=== PATIENT | female | born 1970 | race Caucasian/White ===

== ENCOUNTER 2018-11-24 18:18 | Emergency (ER) | payer MEDICAID ==
[2018-11-24] MEDS ORDERED: MORPHINE SULFATE 10MG/1ML **1ML VIAL IVP ONE (18:24)
[2018-11-24] MEDS ORDERED: ONDANSETRON HCL IV 4 MG/2 ML VIAL IVP ONE (18:24)
--- NOTE | 2018-11-24 18:29 | Emergency Department Record ---
History of Present Illness - General Chief Complaint: Abdominal Pain Stated Complaint: ABD PAIN Time Seen by Provider: 11/24/18 18:23 Source: Patient Mode of Arrival: Ambulatory Limitations: No limitations - History of Present Illness Initial Comments: 48 yo female presents to ED for evaluation of LLQ pain symptoms that began 2-3 days ago, worsened today. Patient denies fevers, chills, or recent illness, but reports nausea and constipation symptoms today. Patient reports previous appendectomy and "cyst removed from the ovary", denies history of di verticulitis. Patient reports history of CAD and DM. Patient denies urinary symptoms. Patient rates her pain at 6/10. MD Complaint: Abdominal pain Onset/Timin -: Days(s) Location: LLQ Radiation: RLQ Severity: Moderate Quality: Aching Consistency: Constant Improves With: Nothing Worsens With: Nothing Associated Symptoms: Nausea - Related Data Patient : No Allergies Allergy/AdvReac Type Severity Reaction Status Date / Time No Known Drug Allergies Allergy Verified 11/24/18 18:28 Review of Systems Constitutional: Denies: Chills, Fever, Malaise, Night sweats Eyes: Denies: Eye discharge, Eye pain ENT: Denies: Congestion, Ear pain, Epistaxis Respiratory: Denies: Cough, Dyspnea Cardiovascular: Denies: Chest pain, Dyspnea on exertion Endocrine: Denies: Fatigue, Heat or cold intolerance Gastrointestinal: Reports: Abdominal pain, Constipation, Nausea. Denies: Vomiting Genitourinary: Denies: Incontinence, Retention Musculoskeletal: Denies: Arthralgia, Back pain Skin: Denies: Bruising, Change in color Neurological: Denies: Abnormal gait, Confusion, Headache, Tingling, Tremors Psychiatric: Denies: Anxiety Hematological/Lymphatic: Denies: Anemia, Blood Clots Past Medical History - SOCIAL HISTORY Smoking Status: Current every day smoker - RESPIRATORY Hx Respiratory Disorders: No - CARDIOVASCULAR Hx Cardio Disorders: Yes Hx Heart Attack: Yes (x2) - NEURO Hx Neuro Disorders: Yes Hx Neuropathy: Yes (lower extremities) - GI Hx GI Disorders: No - Hx Genitourinary Disorders: Yes Hx Kidney Stones: Yes - ENDOCRINE Hx Endocrine Disorders: Yes Hx Diabetes: Yes Hx Thyroid Disease: Yes (low) - MUSCULOSKELETAL Hx Musculoskeletal Disorders: No - PSYCH Hx Psych Problems: Yes Hx Anxiety: Yes Hx Depression: Yes - HEMATOLOGY/ONCOLOGY Hx Hematology/Oncology Disorders: No Family Medical History Family Hx Comment (NOT TO BE USED IN PLACE OF ITEMS BELOW): unknown-adopted. Physical Exam - General General Appearance: Alert, Oriented x3, Cooperative, Moderate distress Limitations: No limitations - Head Head exam: Atraumatic, Normocephalic, Normal inspection Head exam detail: negative: Abrasion, Contusion, Roger's sign, General tenderness, Hematoma, Laceration - Eye Eye exam: Normal appearance. negative: Conjunctival injection, Periorbital swelling, Periorbital tenderness, Scleral icterus - ENT Ear exam: negative: Auricular hematoma, Auricular trauma Nasal Exam: negative: Active bleeding, Discharge, Dried blood, Foreign body Mouth exam: negative: Drooling, Laceration, Muffled voice, Tongue elevation - Neck Neck exam: Normal inspection. negative: Meningismus, Tenderness - Respiratory Respiratory exam: Normal lung sounds bilaterally. negative: Respiratory distress, Rhonchi, Stridor, Wheezes - Cardiovascular Cardiovascular Exam: Regular rate, Normal rhythm, Normal heart sounds - GI/Abdominal GI/Abdominal exam: Soft, Tenderness (TTP LLQ on exmaination, rebound is present, no peritoneal signs on examination). negative: Rebound, Rigid - Rectal Rectal exam: Deferred - exam: Deferred - Extremities Extremities exam: Normal inspection. negative: Pedal edema, Tenderness - Back Back exam: Denies: CVA tenderness (R), CVA tenderness (L) - Neurological Neurological exam: Alert, Normal gait, Oriented X3 - Psychiatric Psychiatric exam: Normal affect, Normal mood - Skin Skin exam: Normal color. negative: Abrasion Type of lesion: negative: abrasion Course - Reevaluation(s) Reevaluation #1: 11/24/18 19:20 Laboratory studies were reviewed and are grossly unremarkable for an acute process except for Hgb 9.8. Previous Hgb level 10.7 04/25. Patient was updated on all results thus far, reports mild improvement following morphine administration. Patient is going for CT imaging at this time. Reevaluation #2: 11/24/18 20:16 CT Abdomen and Pelvis: No acute abnormality Prominence of the tail of pancreas, recommend dedicated CT of the pancreas for further evaluation. Patient was updated on all results, reports that her symptoms are improved, resting comfortably on re-examination. Patient reports that she does have Levsin at home, recommended taking it as needed for her symptoms. Discussed dedicated pancreas CT imaging as an outpatient as well. All questions were answered, and the patient appears stable for discharge at this time. Medical Decision Making - Lab Data Result diagrams: 11/24/18 18:42 11/24/18 18:42 Disposition Disposition: Discharge Clinical Impression: Abdominal pain Qualifiers: Abdominal location: left lower quadrant Qualified Code(s): R10.32 - Left lower quadrant pain Disposition: Home, Self-Care Condition: (2) Stable Instructions: Abdominal Pain (ED) Additional Instructions: Return to ED if your symptoms worsen or if you have any concerns. Hyocosamine as directed. Follow-up with your family doctor in 3-5 days as directed. Recommend dedicated CT imaging of the pancreas for further evaluation of the tail in 2-4 weeks as directed. Forms: Patient Portal Access Time of Disposition: 20:22 Quality - Quality Measures Quality Measures: N/A - Blood Pressure Screening Does Patient Have Any of the Following: No Blood Pressure Classification: Hypertensive Reading Systolic Measurement: 144 Diastolic Measurement: 77 Screening for High Blood Pressure: < First Hypertensive BP, F/U Documented > [G8950] First Hypertensive Follow-up Interventions: Referral to alternative/primary care provider.
[2018-11-24] MEDS ORDERED: 0.9 % SODIUM CHLORIDE 1000ML 1,000 ML IV SCH (18:30)
[2018-11-24 18:47] LABS: URINE APPEARANCE CLEAR; URINE BILIRUBIN NEGATIVE (NEGATIVE); URINE BLOOD NEGATIVE (NEGATIVE); URINE COLOR YELLOW; URINE KETONE NEGATIVE (NEGATIVE); URINE LEUKOCYTE ESTERASE SMALL (NEGATIVE); URINE NITRITE NEGATIVE (NEGATIVE); URINE PROTEIN NEGATIVE (NEGATIVE)
[2018-11-24 18:49] LABS: ABSOLUTE NEUTROPHIL COUNT 5.04; BASO % 0.7 % (0-6); EOS % 2.9 % (0-6); GRAN % 67.1 % (47-80); HEMATOCRIT 33.1 % (35.0-47.0); HEMOGLOBIN 9.8 gm/dl (11.6-16.0); LYMPH % 21.4 % (16-45); MEAN CELL VOLUME 71.5 fl (81-97); MEAN CORPUSCULAR HEMOGLOBIN 21.1 pg (27-33); MEAN CORPUSCULAR HGB CONC 29.6 g/dl (32-36); MONO % 7.9 % (0-9); PLATELET COUNT 355 K/uL (130-400); RED BLOOD COUNT 4.63 M/uL (3.80-5.40); RED CELL DISTRIBUTION WIDTH 18.1 % (11.5-14.5); WHITE BLOOD COUNT W/O DIFF 7.5 K/uL (4.2-12.2)
[2018-11-24 18:58] LABS: URINE BACTERIA FEW; URINE EPITHELIAL CELLS 21 - 35 (FEW); URINE RBC 0 - 2 (NONE SEEN); URINE WBC 0 - 2 (0-2/hpf)
[2018-11-24 19:02] LABS: BLOOD UREA NITROGEN 12 mg/dL (6-20); CREATININE 0.6 mg/dL (0.5-0.9); EST GLOMERULAR FILTRATION RATE > 60 mL/min
[2018-11-24 19:03] LABS: LIPASE 17 U/L (13-60); TOTAL PROTEIN 7.7 g/dL (6.6-8.7)
[2018-11-24 19:05] LABS: GLUCOSE,RANDOM 167 mg/dL (74-109)
[2018-11-24 19:08] LABS: ALB/GLOB RATIO 0.9 (1.1-1.8); ALBUMIN 3.7 g/dL (4.0-5.0); ALKALINE PHOSPHATASE 76 U/L (35-104); ALT/SGPT 7 U/L (<33); AST/SGOT 10 U/L (10.0-35.0)
--- NOTE | 2018-11-26 10:48 | CT SCAN REPORT ---
EXAM: CT OF THE ABDOMEN AND PELVIS WITH CONTRAST HISTORY: LEFT UPPER QUADRANT ABDOMINAL PAIN. TECHNIQUE: Standard CT imaging of the abdomen and pelvis with IV contrast was obtained. Coronal and sagittal reformations are provided. Comparison: None. FINDINGS: Coronary artery calcifications are noted. The lung bases are clear. The liver, gallbladder, and common bile duct are unremarkable. There is ovoid mass like prominence to the pancreatic tail measuring approximately 3.0 cm in length x 1.5 cm in diameter. This is similar in diameter to the remainder of the pancreas though appears more solid than the remainder of the pancreas which demonstrates a more typical feathery appearance. No peripancreatic fat stranding. The spleen is mildly enlarged measuring 14 cm in diameter. the kidneys are unremarkable. The liver is mildly enlarged measuring 19 cm in length. The stomach and small bowel are unremarkable. No bowel dilatation. The bladder is unremarkable. The colon appears normal. The appendix has been resected. Moderate atherosclerotic calcification in the aorta. No aortic aneurysm. No adenopathy in the abdomen or pelvis. No free fluid or free air. No destructive osseous lesion is identified. IMPRESSION: 1. NEGATIVE CT FOR ACUTE ABNORMALITY. 2. MILD SPLENOMEGALY. 3. MASS LIKE PROMINENCE TO THE PANCREATIC TAIL LIKELY NORMAL ANATOMIC VARIATION WITH LESS INTRAPARENCHYMAL FAT, THOUGH A DISTAL MASS IS DIFFICULT TO EXCLUDE. CONSIDER NONEMERGENT PANCREATIC PROTOCOL CT OF THE ABDOMEN FOR FURTHER EVALUATION. JOB NUMBER: [id number] [facility]
== END 2018-11-24 20:36 | disposition home or self-care (01) ==
LOC: ER 18:18
DX: R10.32 Left lower quadrant pain (principal); R11.0 Nausea; I25.10 Atherosclerotic heart disease of native coronary artery without angina pectoris; E11.9 Type 2 diabetes mellitus without complications; Z79.4 Long term (current) use of insulin; I25.2 Old myocardial infarction; F17.210 Nicotine dependence, cigarettes, uncomplicated
CPT/HCPCS: 74177; 80053; 81001; 83690; 85025; 96374; 96375; 99284; J2270; J2405; J7030

== ENCOUNTER 2019-04-13 14:21 | Emergency (ER) | payer MEDICAID ==
--- NOTE | 2019-04-13 14:45 | Emergency Department Record ---
History of Present Illness - General Chief Complaint: Fall Injury Stated Complaint: FALL/LT SHOULDER INJURY Time Seen by Provider: 04/13/19 14:28 Source: Patient, RN notes reviewed Mode of Arrival: Ambulatory - History of Present Illness Initial Comments: fall 2 hours ago and she denies LOC and has neck pain and left shoulder pain and left rib pain and left hip pain and left lower leg pain. Onset/Timin -: Hour(s) Fall From: Standing When Fall Occurred: 1-3 hours [employer] Fall Witnessed: No Place Fall Occurred: Home Loss of Consciousness: None Prolonged Down Time?: No Symptoms Prior to Fall: None Severity: Moderate Severity scale (1-10): 8 Quality: Sharp Context: Tripped/slipped - [place] Coma Scale Eye Response: (4) Open spontaneously Motor Response: (6) Obeys commands Verbal Response: (5) Oriented [place] Total: 15 - Related Data Home Medications Medication Instructions Recorded Confirmed Last Taken Duloxetine HCl [Cymbalta] 20 mg PO DAILY 04/13/19 04/13/19 04/13/19 Allergies Allergy/AdvReac Type Severity Reaction Status Date / Time No Known Drug Allergies Allergy Verified 04/13/19 14:23 Travel Screening - Travel/Exposure Within Last 30 Days Have you traveled within the last 30 days?: No - Travel/Exposure Within Last Year Have you traveled outside the [place] in the last year?: No - Additonal Travel Details Have you been exposed to anyone with a communicable illness?: No - Travel Symptoms Symptom Screening: None Review of Systems Reviewed: No additional complaints except as noted below Constitutional: Reports: As per HPI. Denies: Chills, Fever, Malaise, Night sweats, Weakness, Weight change Eyes: Reports: As per HPI. Denies: Eye discharge, Eye pain, Photophobia, Vision change ENT: Reports: As per HPI. Denies: Congestion, Dental pain, Ear pain, Epistaxis, Hearing loss, Throat pain Respiratory: Reports: As per HPI. Denies: Cough, Dyspnea, Hemoptysis, Stridor, Wheezes Cardiovascular: Reports: As per HPI. Denies: Arrhythmia, Chest pain, Dyspnea on exertion, Edema, Murmurs, Orthopnea, Palpitations, Paroxysmal nocturnal dyspnea, Rheumatic Fever, Syncope Endocrine: Reports: As per HPI. Denies: Fatigue, Heat or cold intolerance, Polydipsia, Polyuria Gastrointestinal: Reports: As per HPI. Denies: Abdominal pain, Constipation, Diarrhea, Hematemesis, Hematochezia, Melena, Nausea, Vomiting Genitourinary: Reports: As per HPI. Denies: Abnormal menses, Discharge, Dyspareunia, Dysuria, Frequency, Hematuria, Incontinence, Retention, Urgency Musculoskeletal: Reports: As per HPI, Arthralgia, Neck pain, Other (left face pain, left rib and left shoulder and left hip and left lower leg pain.). Denies: Back pain, Gout, Joint swelling, Myalgia Skin: Reports: As per HPI. Denies: Bruising, Change in color, Change in hair/nails, Lesions, Pruritus, Rash Neurological: Reports: As per HPI. Denies: Abnormal gait, Confusion, Headache, Numbness, Paresthesias, Seizure, Tingling, Tremors, Vertigo, Weakness Psychiatric: Reports: As per HPI. Denies: Anxiety, Auditory hallucinations, Depression, Homicidal thoughts, Suicidal thoughts, Visual hallucinations Hematological/Lymphatic: Reports: As per HPI. Denies: Anemia, Blood Clots, Easy bleeding, Easy bruising, Swollen glands Past Medical History - SOCIAL HISTORY Smoking Status: Current every day smoker Alcohol Use: None Drug Use: None - RESPIRATORY Hx Respiratory Disorders: No - CARDIOVASCULAR Hx Cardio Disorders: Yes Hx Heart Attack: Yes (x2) - NEURO Hx Neuro Disorders: Yes Hx Neuropathy: Yes (lower extremities) - GI Hx GI Disorders: No - Hx Genitourinary Disorders: Yes Hx Kidney Stones: Yes - ENDOCRINE Hx Endocrine Disorders: Yes Hx Diabetes: Yes Hx Thyroid Disease: Yes (low) - MUSCULOSKELETAL Hx Musculoskeletal Disorders: No - PSYCH Hx Psych Problems: Yes Hx Anxiety: Yes Hx Depression: Yes - HEMATOLOGY/ONCOLOGY Hx Hematology/Oncology Disorders: No Family Medical History Any Significant Family History?: No Family Hx Comment (NOT TO BE USED IN PLACE OF ITEMS BELOW): unknown-adopted. Physical Exam - General General Appearance: Alert, Oriented x3, Cooperative, No acute distress - Head Head exam: Normal inspection - Eye Eye exam: Normal appearance, PERRL Pupils: Normal accommodation - ENT ENT exam: Normal exam, Mucous membranes moist, Normal external ear exam, Normal orophraynx, TM's normal bilaterally Ear exam: Normal external inspection. negative: External canal tenderness Nasal Exam: Normal inspection. negative: Discharge, Sinus tenderness Mouth exam: Normal external inspection, Tongue normal Teeth exam: Normal inspection. negative: Dental caries Throat exam: Normal inspection. negative: Tonsillar erythema, Tonsillar exudate - Neck Neck exam: Normal inspection, Full ROM. negative: Tenderness - Respiratory Respiratory exam: Normal lung sounds bilaterally. negative: Respiratory distress - Cardiovascular Cardiovascular Exam: Regular rate, Normal rhythm, Normal heart sounds - GI/Abdominal GI/Abdominal exam: Soft, Normal bowel sounds. negative: Tenderness - Rectal Rectal exam: Deferred - exam: Deferred - Extremities Extremities exam: Normal inspection, Full ROM, Normal capillary refill. negative: Tenderness - Back Back exam: Reports: Normal inspection, Full ROM. Denies: Muscle spasm, Rash noted, Tenderness - Neurological Neurological exam: Alert, Normal gait, Oriented X3, Reflexes normal - Psychiatric Psychiatric exam: Normal affect, Normal mood - Skin Skin exam: Dry, Intact, Normal color, Warm Course Vital Signs 04/13/19 14:26 Temperature 98.7 F Pulse Rate 78 Respiratory 20 Rate Blood Pressure 127/60 Pulse Ox 98 Medical Decision Making - Data Complexity MDM Data: X-Ray Ordered and/or Reviewed (no fractures seen, CT neck chest negative) - Lab Data Result diagrams: 04/13/19 14:55 04/13/19 14:55 Disposition Clinical Impression: Cervical strain, acute Qualifiers: Encounter type: initial encounter Qualified Code(s): S16.1XXA - Strain of muscle, fascia and tendon at neck level, initial encounter Shoulder contusion Qualifiers: Encounter type: initial encounter Laterality: left Qualified Code(s): S40.012A - Contusion of left shoulder, initial encounter Chest wall contusion Qualifiers: Encounter type: initial encounter Laterality: left Qualified Code(s): S20.212A - Contusion of left front wall of thorax, initial encounter Contusion, lower leg Qualifiers: Encounter type: initial encounter Laterality: left Qualified Code(s): S80.12XA - Contusion of left lower leg, initial encounter Ankle sprain Qualifiers: Encounter type: initial encounter Involved ligament of ankle: anterior talofibular ligament Laterality: left Qualified Code(s): S93.492A - Sprain of other ligament of left ankle, initial encounter Disposition: Home, Self-Care Condition: (1) Good Instructions: Contusion in Adults (ED) Additional Instructions: follow up with family Dr in one week Forms: Patient Portal Access Time of Disposition: 16:29 Quality - Quality Measures Quality Measures: N/A - Blood Pressure Screening Does Patient Have Any of the Following: No Blood Pressure Classification: Pre-Hypertensive BP Reading Systolic Measurement: 127 Diastolic Measurement: 60 Screening for High Blood Pressure: < Pre-Hypertensive BP, F/U Documented > [G8 950] Pre-Hypertensive Follow-up Interventions: Referral to alternative/primary care provider.
[2019-04-13 15:05] LABS: ABSOLUTE NEUTROPHIL COUNT 5.86; BASO % 0.5 % (0-6); EOS % 2.4 % (0-6); HEMATOCRIT 29.3 % (35.0-47.0); HEMOGLOBIN 8.3 gm/dl (11.6-16.0); LYMPH % 13.5 % (16-45); MEAN PLATELET VOLUME 9.6 fl (7.4-10.4); MONO % 6.6 % (0-9); PLATELET COUNT 303 K/uL (130-400); RED BLOOD COUNT 4.35 M/uL (3.80-5.40); WHITE BLOOD COUNT W/O DIFF 7.6 K/uL (4.2-12.2)
[2019-04-13 15:11] LABS: MEAN CELL VOLUME 67.4 fl (81-97)
[2019-04-13 15:12] LABS: MEAN CORPUSCULAR HGB CONC 28.3 g/dl (32-36)
[2019-04-13 15:22] LABS: BLOOD UREA NITROGEN 15 mg/dL (6-20); CREATININE 0.7 mg/dL (0.5-0.9); EST GLOMERULAR FILTRATION RATE > 60 mL/min
[2019-04-13 15:25] LABS: GLUCOSE,RANDOM 278 mg/dL (74-109)
--- NOTE | 2019-04-13 15:49 | CT SCAN REPORT ---
EXAMINATION: MAXILLOFACIAL WO CONTRAST EXAM DATE: 04/13/2019 3:23 PM TECHNIQUE: CT of the maxillofacial bones was obtained without contrast. Multiplanar reconstructions w ere performed INDICATION: fall in shower. ENCOUNTER: Initial COMPARISON: No similar comparison exam FINDINGS: No fracture is identified. No temporal mandibular joint dislocation. Poor dentition is demonstrated with numerous dental caries and absent teeth. The orbits are unremarkable. The paranasal sinuses, mastoid air cells, middle ear cavities are unremarkable. The imaged brain parenchyma is unremarkable. Facial soft tissues are unremarkable. IMPRESSION: 1. No CT evidence of acute traumatic injury. No evidence of fracture. 2. Poor dentition with dental caries and absent teeth. Dictated by: MAGGIE BRIDGES MD on 04/13/2019 3:41 PM. .
--- NOTE | 2019-04-13 15:54 | CT SCAN REPORT ---
EXAMINATION: CT Cervical Spine without IV Contrast EXAM DATE: 04/13/2019 3:11 PM TECHNIQUE: Standard protocol cervical spine CT imaging was performed without intravenous contrast. Co sa[place] and sagittal images were reconstructed. INDICATION: fall in shower COMPARISON: None ENCOUNTER: Not applicable FINDINGS: There is straightening of the normal cervical lordosis. Moderate disc height narrowing sclerosis and spurring are seen at C4-5. Grade 1 posterior spondylolis thesis of C4 over C5 measures 2 mm. Mild endplate degenerative changes are seen at the remaining cervical levels. No evidence of pneumothorax or any focal airspace opacity in the lung apices. No acute fracture line. The prevertebral soft tissues appear normal. Craniocervical junction:Unremarkable. C1-2: Unremarkable. C2-3: Unremarkable. C3-4: Unremarkable. C4-5: Mild bilateral uncovertebral spurring. Mild bilateral bony foraminal stenosis. C5-6: Unremarkable. C6-7: Unremarkable. C7-T1: Unremarkable. IMPRESSION: 1. Straightening of the normal cervical lordosis. 2. No acute cervical spine fracture. Dictated by: Kory Navarrete MD on 04/13/2019 3:46 PM. .
--- NOTE | 2019-04-13 15:56 | CT SCAN REPORT ---
EXAMINATION: CT Chest without IV Contrast EXAM DATE: 04/13/2019 3:23 PM TECHNIQUE: Standard protocol CT images of the chest were performed without intravenous contrast. Lac k of intravenous contrast does limit assessment of the vascular structures and soft tissues. Coronal and sagittal images were reconstructed. INDICATION: fall in shower COMPARISON: None ENCOUNTER: Not applicable CHEST FINDINGS: Base of Neck & Axillae: There is no adenopathy. Mediastinum & Bing: There is no mediastinal or hilar adenopathy. Cardiovascular: The heart is enlarged. Coronary arterial calcifications are present. No pericardial e ffusion. The thoracic aorta and main pulmonary artery have a normal caliber. Tracheobronchial Structures: There is no bronchial wall thickening or bronchiectasis. Lung Parenchyma: Several tiny punctate calcifications within the lungs suggesting old granulomatous d isease. Remainder of the lung de jesus are clear. Pleural Space: There are no pleural effusions. There is no pneumothorax. Upper Abdomen: Included portions of the upper abdomen are unremarkable. Chest Wall & Musculoskeletal: No suspicious bone lesions. 3-D Imaging at an Independent Workstation: Not performed. Assessment of the soft tissues and vascular structures is overall limited on noncontrast imaging, IMPRESSION: No significant findings. No areas of pulmonary contusion. No pneumothorax. Dictated by: Edgar Cooley MD on 04/13/2019 3:49 PM. .
--- NOTE | 2019-04-13 16:04 | RADIOLOGY REPORT ---
EXAMINATION: Left Tibia and Fibula, Two View EXAM DATE: 04/13/2019 3:47 PM TECHNIQUE: 5 views INDICATION: fall in shower COMPARISON: None. ENCOUNTER: Initial FINDINGS: No acute fracture or dislocation IMPRESSION: No acute fracture. Dictated by: Kory Navarrtee MD on 04/13/2019 3:59 PM. .
--- NOTE | 2019-04-13 16:05 | RADIOLOGY REPORT ---
EXAMINATION: Left Shoulder, Complete Minimum Two Views EXAM DATE: 04/13/2019 3:47 PM TECHNIQUE: AP, Grashey, and axillary INDICATION: fall in shower COMPARISON: None ENCOUNTER: Initial FINDINGS: No acute fracture or dislocation. Mild degenerative sclerosis and spurring at the acromioclavicular j oint. IMPRESSION: No acute fracture Dictated by: Kory Navarrete MD on 04/13/2019 4:03 PM. .
== END 2019-04-13 16:46 | disposition home or self-care (01) ==
LOC: ER 14:21
DX: S16.1XXA Strain of muscle, fascia and tendon at neck level, initial encounter (principal); S40.012A Contusion of left shoulder, initial encounter; S20.212A Contusion of left front wall of thorax, initial encounter; S80.12XA Contusion of left lower leg, initial encounter; S93.492A Sprain of other ligament of left ankle, initial encounter; I25.2 Old myocardial infarction; F17.210 Nicotine dependence, cigarettes, uncomplicated; W01.10XA Fall on same level from slipping, tripping and stumbling with subsequent striking against unspecified object, initial encounter; Y93.E1 Activity, personal bathing and showering; Y92.002 Bathroom of unspecified non-institutional (private) residence as the place of occurrence of the external cause
CPT/HCPCS: 70486; 71250; 72125; 80048; 85025; 99284

== ENCOUNTER 2019-04-21 10:33 | Day surgery (SDC) | payer MEDICAID ==
[2019-04-21] MEDS ORDERED: PROPOFOL 10 MG/ML VIAL IV ONE (10:34)
[2019-04-21] MEDS ORDERED: LIDOCAINE 2% MDV (20MG/ML) 20ML VIAL IV ONE (10:34)
[2019-04-21] MEDS ORDERED: FENTANYL PF 100MCG/2ML VIAL IV ONE (10:34)
--- NOTE | 2019-04-21 15:20 | Operative Note ---
OPERATION: ESOPHAGOGASTRODUODENOSCOPY. PREOPERATIVE DIAGNOSIS: Chronic right upper quadrant epigastric postprandial pain. POSTOPERATIVE DIAGNOSIS: Normal upper endoscopy. PROCEDURE: After informed consent was obtained from the patient, she was placed in the left lateral decubitus position in the endoscopy suite, sedated and monitored by the department of anesthesia. Once sedated, a well-lubricated [id number] gastroscope was placed in the posterior oropharynx under direct visualization and passed to the proximal, mid, and distal esophagus. The GE junction, esophagus, gastric body, antrum, pylorus, duodenal bulb, and sweep were unremarkable. J-turn views of the proximal stomach were unremarkable. The endoscope was straightened. The antrum was again inspected and was unrevealing. The endoscope was removed from the patient with no new findings noted. 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 I believe followup with a surgeon and discussion of the risks and benefits of a cholecystectomy would be worthwhile. As always, thank you for allowing me to participate in the healthcare of your patients. [id number]
== END 2019-04-21 12:48 | disposition home or self-care (01) ==
LOC: HOP 10:33
PROVIDERS: ATTEND Internal Medicine Gastroenterology
DX: R10.13 Epigastric pain (principal); R10.11 Right upper quadrant pain; G89.29 Other chronic pain; K21.9 Gastro-esophageal reflux disease without esophagitis; E78.00 Pure hypercholesterolemia, unspecified; I10 Essential (primary) hypertension; E11.9 Type 2 diabetes mellitus without complications
CPT/HCPCS: 43235; 00731; J3010